=== PATIENT | female | born 1935 | race African-American/Black ===

== ENCOUNTER 2018-04-23 18:48 | Inpatient (IN) ==
[2018-04-23 19:51] LABS: Calcium 9.5 MG/DL (8.5-10.1); Osmolality,Calculated 285.5 MOS/KG (273-304)
[2018-04-23 19:52] LABS: Apearance,Urine CLEAR (Clear); Bilirubin,Urine Negative (Negative); Blood, Urine Negative (Negative); Glucose,Urine (UA) 150 mg/dL (Negative); Ketones,Urine 5 mg/dL (Negative); Mucus,Urine Occasional /LPF (Occasional); Nitrite,Urine Negative (Negative); Protein,Urine 30 MG/DL; RBC,Urine 1 /HPF (0-4); Urine Color Straw (Yellow); Urine Specific Gravity 1.013 (1.001-1.035); Urine Urobilinogen < 2.0 EU/DL (0.2-1.0); WBC,Urine <1 /HPF (0-6)
[2018-04-23 19:58] LABS: Basophils # 0.1 10*3/uL (0.0-0.2); Basophils % 0.5 % (0.0-0.8); Eosinophils # 0.1 10*3/uL (0.0-0.87); Eosinophils % 0.5 % (0.00-10.9); Hematocrit 36.2 VOL% (35.7-47.0); Hemoglobin 11.2 GM/DL (12.0-16.0); Immature Granulocytes % 0.6 %; Immature Granulocytes Absolute 0.09 #; Lymphocytes # 1.7 10*3/uL (1.4-4.0); Lymphocytes % 11.4 % (21.3-54.2); Mean Corpuscular HGB Conc 30.9 GM/DL (32-36); Mean Corpuscular Hemoglobin 29 PG (27-34); Mean Corpuscular Volume 93.1 FL (87-102); Mean Platelet Volume 10.9 FL (9.6-12.0); Monocytes # 0.8 10*3/uL (0.11-0.8); Monocytes % 5.2 % (1.7-12.7); Neutrophils # 12.4 10*3/uL (1.4-7.4); Neutrophils % 81.8 % (38.7-73.9); Platelet Count 244 T/CUMM (130-400); Red Blood Count 3.89 MC/CUMM (3.8-5.5); Red Cell Distribution Width 13.9 % (9.3-17.3); White Blood Count 15.1 T/CUMM (4-12)
[2018-04-23 20:15] LABS: INR 0.9
[2018-04-23] MEDS ORDERED: HYDROmorphone 2 MG/1 ML VIAL IV STA (20:44)
[2018-04-23] MEDS ORDERED: DOCUSATE SODIUM 100 MG CAPSULE PO PRN (22:51)
[2018-04-23] MEDS ORDERED: ONDANSETRON 4 MG/2 ML VIAL IV PRN (22:51)
[2018-04-23] MEDS ORDERED: MORPHINE 4 MG/1 ML VIAL IV PRN (22:51)
[2018-04-23] MEDS ORDERED: ACETAMINOPHEN 325 MG TABLET PO PRN (22:51)
[2018-04-23] MEDS ORDERED: SODIUM CHLORIDE 0.9% 1,000 ML IV SCH (23:00)
[2018-04-23] MEDS ORDERED: GLUCAGON 1 MG VIAL IM PRN (23:16)
[2018-04-23] MEDS ORDERED: DEXTROSE 50% 25 GM/50 ML SYRINGE IV PRN (23:16)
[2018-04-24] MEDS: DORZOLAMIDE 2% OPH SOLN 10 ML BOTTLE BOTH EYES SCH ×3 (00:05→21:08)
[2018-04-24] MEDS: GABAPENTIN 300 MG CAPSULE PO SCH ×4 (00:11→21:06)
[2018-04-24] MEDS: OXYBUTYNIN 5 MG TABLET PO SCH ×3 (00:11→21:07)
[2018-04-24] MEDS: SIMVASTATIN 10 MG TABLET PO SCH ×2 (00:11→21:06)
[2018-04-24] MEDS: TRAVOPROST 0.004% OPH SOLN 2.5 ML BOTTLE BOTH EYES SCH ×2 (00:12→21:08)
[2018-04-24] MEDS: BRIMONIDINE/TIMOLOL OPH SOLN 5 ML BOTTLE BOTH EYES SCH ×3 (00:13→21:07)
[2018-04-24] MEDS: INSULIN REGULAR 100 UNIT/ML SUBCUT SCH ×5 (00:16→21:07)
[2018-04-24 05:37] LABS: Basophils % 0.3 % (0.0-0.8); Eosinophils % 0.1 % (0.00-10.9); Hematocrit 30.9 VOL% (35.7-47.0); Hemoglobin 9.5 GM/DL (12.0-16.0); Immature Granulocytes % 0.3 %; Immature Granulocytes Absolute 0.03 #; Lymphocytes # 1.5 10*3/uL (1.4-4.0); Lymphocytes % 16.2 % (21.3-54.2); Mean Corpuscular HGB Conc 30.7 GM/DL (32-36); Mean Corpuscular Hemoglobin 29 PG (27-34); Mean Corpuscular Volume 93.4 FL (87-102); Mean Platelet Volume 11.3 FL (9.6-12.0); Monocytes # 0.5 10*3/uL (0.11-0.8); Monocytes % 5.4 % (1.7-12.7); Neutrophils % 77.7 % (38.7-73.9); Platelet Count 210 T/CUMM (130-400); Red Blood Count 3.31 MC/CUMM (3.8-5.5); Red Cell Distribution Width 13.7 % (9.3-17.3)
[2018-04-24 06:09] LABS: Calcium 8.9 MG/DL (8.5-10.1); Osmolality,Calculated 286.5 MOS/KG (273-304); Potassium 4.3 MMOL/L (3.5-5.1)
[2018-04-24] MEDS ORDERED: ceFAZolin 2,000 MG in PREMIX 1 EACH IV ONE (06:21)
[2018-04-24] MEDS ORDERED: amLODIPine 5 MG TABLET PO SCH (07:00)
[2018-04-24] MEDS: ENALAPRIL 10 MG TABLET PO SCH (08:22)
[2018-04-24] MEDS: METOPROLOL SUCCINATE XL 100 MG TABLET PO SCH (08:23)
[2018-04-24] MEDS: glipiZIDE 5 MG TABLET PO SCH ×2 (08:33→17:02)
[2018-04-24] MEDS: MULTIVITAMIN (CENTRUM) TABLET PO SCH (09:00)
[2018-04-24] MEDS ORDERED: MEPERIDINE 25 MG/1 ML VIAL IV PRN (10:46)
[2018-04-24] MEDS ORDERED: PROMETHAZINE INJ 25 MG in SODIUM CHLORIDE 0.9% 50 ML IV PRN (10:46)
[2018-04-24] MEDS ORDERED: ONDANSETRON 4 MG/2 ML VIAL IV PRN (10:46)
[2018-04-24] MEDS ORDERED: BACITRACIN OINT 0.9 GM PACK TOP ONE (10:47)
[2018-04-24] MEDS ORDERED: MORPHINE 4 MG/1 ML VIAL IV PRN ×2 (11:08)
[2018-04-24] MEDS ORDERED: oxyCODONE IR 5 MG TABLET PO PRN (11:08)
[2018-04-24] MEDS: LACTATED RINGERS 1,000 ML IV SCH ×2 (11:20→22:50)
[2018-04-24] MEDS ORDERED: MEPERIDINE 25 MG/1 ML VIAL ONE ×2 (11:29→11:32)
[2018-04-24] MEDS ORDERED: ONDANSETRON 4 MG/2 ML VIAL ONE ×2 (11:29→13:08)
[2018-04-24] MEDS ORDERED: HYDROmorphone 2 MG/1 ML VIAL ONE (11:32)
[2018-04-24] MEDS ORDERED: PROMETHAZINE 25 MG/1 ML VIAL ONE (11:32)
[2018-04-24] MEDS: HYDROmorphone 2 MG/1 ML VIAL IV PRN ×4 (11:35→11:50)
[2018-04-24] MEDS ORDERED: KETOROLAC 15 MG/1 ML VIAL ONE (12:00)
[2018-04-24] MEDS: KETOROLAC 15 MG/1 ML VIAL IV SCH ×3 (12:01→23:28)
[2018-04-24] MEDS: CALCIUM (CARBONATE) 500 MG TABLET PO SCH (12:55)
[2018-04-24] MEDS: CYANOCOBALAMIN 500 MCG TABLET PO SCH (12:55)
[2018-04-24] MEDS ORDERED: PROPOFOL 200 MG/20 ML VIAL IV ONE (13:07)
[2018-04-24] MEDS ORDERED: ETOMIDATE 40 MG/20 ML VIAL IV ONE (13:08)
[2018-04-24] MEDS ORDERED: PHENYLEPHRINE 1 MG/10 ML SYRINGE IV ONE (13:08)
[2018-04-24] MEDS ORDERED: GLYCOPYRROLATE 0.4 MG/2 ML VIAL ONE (13:08)
[2018-04-24] MEDS ORDERED: fentaNYL 100 MCG/2 ML VIAL ONE (13:08)
[2018-04-24] MEDS ORDERED: SEVOFLURANE 1 UNIT/15 MINUTE INH ONE (13:08)
[2018-04-24] MEDS ORDERED: ROCURONIUM 100 MG/10 ML VIAL IV ONE (13:09)
[2018-04-24] MEDS ORDERED: NEOSTIGMINE 10 MG/10 ML VIAL ONE (13:09)
[2018-04-24] MEDS: ACETAMINOPHEN 500 MG TABLET PO SCH ×2 (14:59→21:06)
[2018-04-24] MEDS: ceFAZolin 2,000 MG in PREMIX 1 EACH IV SCH ×2 (15:00→22:53)
[2018-04-24] MEDS: amLODIPine 5 MG TABLET PO SCH (21:06)
[2018-04-24] MEDS: oxyCODONE IR 5 MG TABLET PO PRN (22:49)
[2018-04-25] MEDS: ACETAMINOPHEN 500 MG TABLET PO SCH ×2 (02:42→09:23)
[2018-04-25] MEDS: KETOROLAC 15 MG/1 ML VIAL IV SCH (04:59)
[2018-04-25] MEDS: FONDAPARINUX 2.5 MG/0.5 ML SYRINGE SUBCUT SCH (05:00)
[2018-04-25 06:07] LABS: Basophils % 0.5 % (0.0-0.8); Eosinophils # 0.2 10*3/uL (0.0-0.87); Eosinophils % 3.5 % (0.00-10.9); Hematocrit 24.8 VOL% (35.7-47.0); Hemoglobin 7.5 GM/DL (12.0-16.0); Immature Granulocytes % 0.3 %; Immature Granulocytes Absolute 0.02 #; Lymphocytes # 1.9 10*3/uL (1.4-4.0); Mean Corpuscular HGB Conc 30.2 GM/DL (32-36); Mean Corpuscular Hemoglobin 29 PG (27-34); Mean Corpuscular Volume 94.7 FL (87-102); Mean Platelet Volume 10.9 FL (9.6-12.0); Monocytes # 0.5 10*3/uL (0.11-0.8); Monocytes % 8.2 % (1.7-12.7); Neutrophils # 3.8 10*3/uL (1.4-7.4); Neutrophils % 58.5 % (38.7-73.9); Platelet Count 172 T/CUMM (130-400); Red Blood Count 2.62 MC/CUMM (3.8-5.5); Red Cell Distribution Width 13.8 % (9.3-17.3); White Blood Count 6.6 T/CUMM (4-12)
[2018-04-25] MEDS: oxyCODONE IR 5 MG TABLET PO PRN (06:16)
[2018-04-25 06:23] LABS: Osmolality,Calculated 281.4 MOS/KG (273-304)
[2018-04-25 06:25] LABS: Calcium 7.9 MG/DL (8.5-10.1); Osmolality,Calculated 277.7 MOS/KG (273-304); Potassium 3.9 MMOL/L (3.5-5.1)
[2018-04-25] MEDS ORDERED: SODIUM CHLORIDE 0.9% 1,000 ML IV PRN (08:27)
[2018-04-25] MEDS ORDERED: FUROSEMIDE 20 MG/2 ML VIAL IV PRN (08:27)
[2018-04-25] MEDS: INSULIN REGULAR 100 UNIT/ML SUBCUT SCH ×4 (08:30→20:39)
[2018-04-25] MEDS: glipiZIDE 5 MG TABLET PO SCH ×2 (08:30→17:30)
[2018-04-25] MEDS: MULTIVITAMIN (CENTRUM) TABLET PO SCH (09:23)
[2018-04-25] MEDS: OXYBUTYNIN 5 MG TABLET PO SCH ×2 (09:23→20:35)
[2018-04-25] MEDS: METOPROLOL SUCCINATE XL 100 MG TABLET PO SCH (09:23)
[2018-04-25] MEDS: GABAPENTIN 300 MG CAPSULE PO SCH ×3 (09:23→20:35)
[2018-04-25] MEDS: amLODIPine 5 MG TABLET PO SCH (09:24)
[2018-04-25] MEDS: BRIMONIDINE/TIMOLOL OPH SOLN 5 ML BOTTLE BOTH EYES SCH ×2 (09:24→20:37)
[2018-04-25] MEDS: DORZOLAMIDE 2% OPH SOLN 10 ML BOTTLE BOTH EYES SCH ×2 (09:24→20:36)
[2018-04-25] MEDS: ENALAPRIL 10 MG TABLET PO SCH (09:24)
[2018-04-25] MEDS: LACTATED RINGERS 1,000 ML IV SCH (09:46)
[2018-04-25] MEDS ORDERED: NALOXONE 0.4 MG/ML VIAL ONE ×2 (11:37→14:53)
[2018-04-25] MEDS ORDERED: FUROSEMIDE 20 MG/2 ML VIAL IV ONE (11:58)
[2018-04-25 12:46] LABS: PT Patient Result 10.7 SECS; Partial Thromboplastin Time 30.4 SECS (0-40)
[2018-04-25] MEDS ORDERED: MORPHINE 4 MG/1 ML VIAL IV PRN (13:00)
[2018-04-25] MEDS: CALCIUM (CARBONATE) 500 MG TABLET PO SCH (14:19)
[2018-04-25] MEDS: CYANOCOBALAMIN 500 MCG TABLET PO SCH (14:19)
[2018-04-25 15:18] LABS: Troponin I < 0.015 NG/ML (0.00-0.045)
[2018-04-25] MEDS ORDERED: NALOXONE 0.4 MG/ML VIAL IV ONE (15:28)
[2018-04-25] MEDS: SIMVASTATIN 10 MG TABLET PO SCH (20:35)
[2018-04-25] MEDS: TRAVOPROST 0.004% OPH SOLN 2.5 ML BOTTLE BOTH EYES SCH (20:37)
[2018-04-26] MEDS: FONDAPARINUX 2.5 MG/0.5 ML SYRINGE SUBCUT SCH (04:32)
[2018-04-26 05:16] LABS: Basophils # 0.1 10*3/uL (0.0-0.2); Basophils % 0.5 % (0.0-0.8); Eosinophils # 0.3 10*3/uL (0.0-0.87); Eosinophils % 3.2 % (0.00-10.9); Hematocrit 36.9 VOL% (35.7-47.0); Hemoglobin 11.5 GM/DL (12.0-16.0); Immature Granulocytes % 0.4 %; Immature Granulocytes Absolute 0.04 #; Lymphocytes # 1.6 10*3/uL (1.4-4.0); Lymphocytes % 15.8 % (21.3-54.2); Mean Corpuscular HGB Conc 31.2 GM/DL (32-36); Mean Corpuscular Hemoglobin 28 PG (27-34); Mean Corpuscular Volume 90.4 FL (87-102); Mean Platelet Volume 10.4 FL (9.6-12.0); Monocytes % 9.6 % (1.7-12.7); Neutrophils # 7.1 10*3/uL (1.4-7.4); Neutrophils % 70.5 % (38.7-73.9); Platelet Count 177 T/CUMM (130-400); Red Blood Count 4.08 MC/CUMM (3.8-5.5); Red Cell Distribution Width 16.1 % (9.3-17.3)
[2018-04-26 05:39] LABS: Calcium 8.6 MG/DL (8.5-10.1); Osmolality,Calculated 280.7 MOS/KG (273-304); Potassium 4.2 MMOL/L (3.5-5.1)
[2018-04-26] MEDS: MULTIVITAMIN (CENTRUM) TABLET PO SCH (08:54)
[2018-04-26] MEDS: glipiZIDE 5 MG TABLET PO SCH ×2 (08:54→17:47)
[2018-04-26] MEDS: OXYBUTYNIN 5 MG TABLET PO SCH ×2 (08:56→21:43)
[2018-04-26] MEDS: BRIMONIDINE/TIMOLOL OPH SOLN 5 ML BOTTLE BOTH EYES SCH ×2 (08:56→21:48)
[2018-04-26] MEDS: GABAPENTIN 300 MG CAPSULE PO SCH ×3 (08:56→21:43)
[2018-04-26] MEDS: DORZOLAMIDE 2% OPH SOLN 10 ML BOTTLE BOTH EYES SCH ×2 (08:57→21:48)
[2018-04-26] MEDS: INSULIN REGULAR 100 UNIT/ML SUBCUT SCH ×4 (09:47→21:47)
[2018-04-26] MEDS: CALCIUM (CARBONATE) 500 MG TABLET PO SCH (12:45)
[2018-04-26] MEDS: CYANOCOBALAMIN 500 MCG TABLET PO SCH (12:46)
[2018-04-26] MEDS: amLODIPine 5 MG TABLET PO SCH (15:17)
[2018-04-26] MEDS: ENALAPRIL 10 MG TABLET PO SCH (15:17)
[2018-04-26] MEDS: ATORVASTATIN 40 MG TABLET PO SCH (21:43)
[2018-04-26] MEDS: TRAVOPROST 0.004% OPH SOLN 2.5 ML BOTTLE BOTH EYES SCH (21:48)
[2018-04-27] MEDS: FONDAPARINUX 2.5 MG/0.5 ML SYRINGE SUBCUT SCH (04:35)
[2018-04-27] MEDS: glipiZIDE 5 MG TABLET PO SCH ×3 (09:27→17:07)
[2018-04-27] MEDS: MULTIVITAMIN (CENTRUM) TABLET PO SCH (09:28)
[2018-04-27] MEDS: OXYBUTYNIN 5 MG TABLET PO SCH ×2 (09:28→21:10)
[2018-04-27] MEDS: INSULIN REGULAR 100 UNIT/ML SUBCUT SCH ×4 (09:28→21:09)
[2018-04-27] MEDS: ASPIRIN CHEW 81 MG TABLET PO SCH (09:28)
[2018-04-27] MEDS: GABAPENTIN 300 MG CAPSULE PO SCH ×3 (09:29→21:10)
[2018-04-27] MEDS: amLODIPine 5 MG TABLET PO SCH (09:29)
[2018-04-27] MEDS: ENALAPRIL 10 MG TABLET PO SCH (09:29)
[2018-04-27] MEDS: DORZOLAMIDE 2% OPH SOLN 10 ML BOTTLE BOTH EYES SCH ×2 (09:34→21:09)
[2018-04-27] MEDS: BRIMONIDINE/TIMOLOL OPH SOLN 5 ML BOTTLE BOTH EYES SCH ×2 (09:34→21:09)
[2018-04-27] MEDS: METOPROLOL TARTRATE 25 MG TABLET PO SCH ×2 (11:53→21:10)
[2018-04-27] MEDS: CYANOCOBALAMIN 500 MCG TABLET PO SCH (12:37)
[2018-04-27] MEDS: CALCIUM (CARBONATE) 500 MG TABLET PO SCH (12:37)
[2018-04-27] MEDS: MAGNESIUM HYDROXIDE SUSP 30 ML UDCUP PO PRN ×2 (17:01→17:08)
[2018-04-27] MEDS: metFORMIN 500 MG TABLET PO SCH ×2 (17:01→17:07)
[2018-04-27] MEDS ORDERED: amLODIPine 5 MG TABLET PO SCH (21:00)
[2018-04-27] MEDS: TRAVOPROST 0.004% OPH SOLN 2.5 ML BOTTLE BOTH EYES SCH (21:09)
[2018-04-27] MEDS: ATORVASTATIN 40 MG TABLET PO SCH (21:10)
[2018-04-28] MEDS: FONDAPARINUX 2.5 MG/0.5 ML SYRINGE SUBCUT SCH (06:16)
[2018-04-28] MEDS: metFORMIN 500 MG TABLET PO SCH (08:43)
[2018-04-28] MEDS: METOPROLOL TARTRATE 25 MG TABLET PO SCH (08:43)
[2018-04-28] MEDS: glipiZIDE 5 MG TABLET PO SCH (08:43)
[2018-04-28] MEDS: ASPIRIN CHEW 81 MG TABLET PO SCH (08:43)
[2018-04-28] MEDS: MULTIVITAMIN (CENTRUM) TABLET PO SCH (08:44)
[2018-04-28] MEDS: GABAPENTIN 300 MG CAPSULE PO SCH ×2 (08:44→15:22)
[2018-04-28] MEDS: ENALAPRIL 10 MG TABLET PO SCH (08:44)
[2018-04-28] MEDS: BRIMONIDINE/TIMOLOL OPH SOLN 5 ML BOTTLE BOTH EYES SCH (08:45)
[2018-04-28] MEDS: OXYBUTYNIN 5 MG TABLET PO SCH (08:45)
[2018-04-28] MEDS: DORZOLAMIDE 2% OPH SOLN 10 ML BOTTLE BOTH EYES SCH (08:45)
[2018-04-28] MEDS ORDERED: amLODIPine 5 MG TABLET PO SCH (09:00)
[2018-04-28] MEDS: INSULIN REGULAR 100 UNIT/ML SUBCUT SCH ×2 (09:09→12:04)
[2018-04-28] MEDS ORDERED: BACITRACIN OINT 0.9 GM PACK TOP SCH (10:30)
[2018-04-28 11:43] VITALS: BP 136/64
[2018-04-28] MEDS: CYANOCOBALAMIN 500 MCG TABLET PO SCH (11:53)
[2018-04-28] MEDS: CALCIUM (CARBONATE) 500 MG TABLET PO SCH (11:53)
== END 2018-04-28 15:57 | DRG 481 ==
LOC: EDUNIT# → EDBD → N.ED 18:48 → N.EDINP 21:48 → N.3E 22:49
PROVIDERS: ADMIT Internal Medicine; ATTEND Internal Medicine

== ENCOUNTER 2019-10-05 17:03 | Inpatient (IN) ==
[2019-10-05 18:12] LABS: Basophils # 0.1 10*3/uL (0.0-0.2); Basophils % 1.1 % (0.0-0.8); Eosinophils # 0.2 10*3/uL (0.0-0.87); Eosinophils % 2.9 % (0.00-10.9); Hematocrit 39.1 VOL% (35.7-47.0); Hemoglobin 12.2 GM/DL (12.0-16.0); Immature Granulocytes % 0.4 %; Immature Granulocytes Absolute 0.03 #; Lymphocytes % 35.6 % (21.3-54.2); Mean Corpuscular HGB Conc 31.2 GM/DL (32-36); Mean Corpuscular Volume 95.4 FL (87-102); Mean Platelet Volume 10.9 FL (9.6-12.0); Monocytes % 9.1 % (1.7-12.7); Neutrophils % 50.9 % (38.7-73.9); Platelet Count 243 T/CUMM (130-400); Red Cell Distribution Width 13.2 % (9.3-17.3); White Blood Count 8.4 T/CUMM (4-12)
[2019-10-05 18:25] LABS: INR 0.9; PT Patient Result 9.8 SECS (9.8-11.9); Partial Thromboplastin Time 23.3 SECS (23.9-33.8)
[2019-10-05 18:28] LABS: Alanine Aminotransferase 18 U/L (13-56); Albumin 2.9 G/DL (3.4-5.0); Alkaline Phosphatase 119 U/L (45-117); Aspartate Amino Transferase 15 U/L (0-37); Bilirubin,Total < 0.39 MG/DL (0.2-1.0); Blood Urea Nitrogen 37 MG/DL (7-18); Calcium 10.3 MG/DL (8.5-10.1); Estimated Glom Filtration Rate 28 ML/MIN; Glucose 392 MG/DL (74-106); Osmolality,Calculated 297.8 MOS/KG (273-304); Total Protein 6.4 G/DL (6.4-8.3)
[2019-10-05] MEDS ORDERED: LABETALOL 20 MG/4 ML SYRINGE IV PRN (18:53)
[2019-10-05] MEDS ORDERED: DEXTROSE 50% 25 GM/50 ML VIAL IV PRN ×2 (18:58→18:59)
[2019-10-05] MEDS ORDERED: GLUCAGON 1 MG VIAL IM PRN (18:58)
[2019-10-05 20:09] LABS: Barbiturates Screen,Urine Negative (Negative); Benzodiazepines Screen,Urine Negative (Negative); Cannabinoid Screen,Urine Negative (Negative); Opiate Screen,Urine Negative (Negative); Phencyclidine Screen,Urine Negative (Negative)
[2019-10-05 20:48] LABS: Apearance,Urine Slightly Hazy (Clear); Bacteria,Urine Many /HPF (Few); Bilirubin,Urine Negative (Negative); Blood, Urine Negative (Negative); Glucose,Urine (UA) >=500 mg/dL (Negative); Ketones,Urine Negative (Negative); Mucus,Urine Occasional /LPF (Occasional); Nitrite,Urine Positive (Negative); Protein,Urine Negative; RBC,Urine 1 /HPF (0-4); Squamous Epithelial Cell,Urine Occasional /HPF (0-10); Urine Color Yellow (Yellow); Urine Specific Gravity 1.017 (1.001-1.035); Urine Urobilinogen < 2.0 EU/DL (0.2-1.0); WBC,Urine 11 /HPF (0-6)
[2019-10-05] MEDS: SODIUM CHLORIDE 0.9% 1,000 ML IV SCH (22:37)
[2019-10-05] MEDS: ENOXAPARIN 30 MG/0.3 ML SYRINGE SUBCUT SCH (22:39)
[2019-10-05] MEDS: BRIMONIDINE/TIMOLOL OPH SOLN 5 ML BOTTLE BOTH EYES SCH (22:39)
[2019-10-05] MEDS: INSULIN REGULAR 100 UNIT/ML SUBCUT SCH (22:40)
[2019-10-06] MEDS: INSULIN REGULAR 100 UNIT/ML SUBCUT SCH ×4 (06:59→21:11)
[2019-10-06 07:13] LABS: Basophils # 0.1 10*3/uL (0.0-0.2); Basophils % 1.1 % (0.0-0.8); Eosinophils # 0.1 10*3/uL (0.0-0.87); Eosinophils % 1.7 % (0.00-10.9); Hematocrit 42.7 VOL% (35.7-47.0); Immature Granulocytes % 0.1 %; Immature Granulocytes Absolute 0.01 #; Lymphocytes % 26.3 % (21.3-54.2); Mean Corpuscular HGB Conc 32.8 GM/DL (32-36); Mean Corpuscular Volume 91.8 FL (87-102); Mean Platelet Volume 10.7 FL (9.6-12.0); Monocytes % 6.4 % (1.7-12.7); Neutrophils % 64.4 % (38.7-73.9); Platelet Count 223 T/CUMM (130-400); Red Blood Count 4.65 MC/CUMM (3.8-5.5); Red Cell Distribution Width 13.1 % (9.3-17.3); White Blood Count 7.5 T/CUMM (4-12)
[2019-10-06 07:31] LABS: Risk Ratio 3.12; VLDL CHOLESTEROL 21.2 MG/DL
[2019-10-06] MEDS: BRIMONIDINE/TIMOLOL OPH SOLN 5 ML BOTTLE BOTH EYES SCH ×2 (09:05→22:04)
[2019-10-06] MEDS: ASPIRIN 325 MG TABLET PO SCH (10:17)
[2019-10-06] MEDS: SODIUM CHLORIDE 0.9% 1,000 ML IV SCH (13:55)
[2019-10-06] MEDS ORDERED: ATORVASTATIN 80 MG TABLET PO SCH (21:00)
[2019-10-06] MEDS: ENOXAPARIN 30 MG/0.3 ML SYRINGE SUBCUT SCH (21:10)
[2019-10-07] MEDS: BRIMONIDINE/TIMOLOL OPH SOLN 5 ML BOTTLE BOTH EYES SCH (08:01)
[2019-10-07] MEDS: ASPIRIN 325 MG TABLET PO SCH (08:01)
[2019-10-07] MEDS: INSULIN REGULAR 100 UNIT/ML SUBCUT SCH ×2 (08:01→11:02)
[2019-10-07] MEDS ORDERED: CLOPIDOGREL 75 MG TABLET PO SCH (09:00)
[2019-10-07 11:08] VITALS: BP 157/91
[2019-10-07] MEDS ORDERED: sitaGLIPtin 25 MG TABLET PO SCH (12:30)
[2019-10-07] MEDS ORDERED: INSULIN GLARGINE 100 UNIT/ML SUBCUT SCH (21:00)
== END 2019-10-07 14:55 | DRG 64 ==
LOC: N.ED 17:03 → N.EDINP 18:53 → N.3E 20:12
PROVIDERS: ADMIT Family Medicine; ATTEND Family Medicine